=== PATIENT | female | born 2000 | race African-American/Black ===

== ENCOUNTER 2021-08-01 19:27 | Inpatient (IN) | payer BC ==
[~2021-08-01] VITALS: Ht 165.1 cm; Wt 65.3 kg
--- NOTE | 2021-08-01 20:03 | NUR ---
C/O LOWER ABD PAIN & LOW BACK PAIN. PT JUST FINISHED TAKING ABX FOR UTI. PT AAOX4, VSS. RR EVEN & UNLABORED. DENIES CP, SOB, DIZZINESS, N/V AT THIS TIME. AWAITING EVAL BY LASHONDA.
--- NOTE | 2021-08-01 20:10 | NUR ---
DR. HALE AT FOR [facility].
[2021-08-01 21:01] LABS: BASOPHILS # (AUTO) 0.1 K/uL (0.0-0.2); BASOPHILS % (AUTO) 0.3 % (0.0-2.0); EOSINOPHILS % (AUTO) 0.1 % (0.0-6.0); HEMATOCRIT 37 % (33-45); HEMOGLOBIN 12.5 g/dL (11.5-14.8); LYMPHOCYTES # (AUTO) 1.6 K/uL (0.8-4.8); LYMPHOCYTES % (AUTO) 8.1 % (20.0-44.0); MEAN CORPUSCULAR HGB CONC 34 g/dl (31.0-36.0); MEAN CORPUSCULAR VOLUME 90 fL (82-100); MONOCYTES # (AUTO) 1.4 K/uL (0.1-1.30); NEUTROPHILS % (AUTO) 84.5 % (43.0-81.0); PLATELET COUNT (AUTO) 237 K/uL (150-450); RED BLOOD CELL COUNT(AUTO) 4.13 MIL/uL (4.0-5.2); WHITE BLOOD COUNT (AUTO) 20.1 K/uL (4.3-11.0)
[2021-08-01 21:08] LABS: BILIRUBIN,URINE NEGATIVE (NEGATIVE); COLOR,URINE YELLOW (YELLOW); LEUKOCYTE ESTERASE ,URINE NEGATIVE (NEGATIVE); NITRITE, URINE NEGATIVE (NEGATIVE); PROTEIN,URINE NEGATIVE (NEGATIVE); UGLUCOSE NEGATIVE (NEGATIVE)
[2021-08-01 21:27] LABS: BACTERIA,URINE Rare /HPF (None Seen); RBC,URINE 0-2 /HPF (0-2); SQUAMOUS EPITHELIAL CELL,UR Few /HPF (None Seen); WBC,URINE 0-2 /HPF (0-3)
[2021-08-01 21:40] LABS: CALCIUM, SERUM 8.5 mg/dL (8.5-10.1); CREATININE 0.9 mg/dL (0.6-1.3); POTASSIUM 3.5 mmol/L (3.5-5.1)
[2021-08-01] MEDS ORDERED: IOHEXOL-300 100 ML VIAL IV ONE (21:47)
[2021-08-01] MEDS ORDERED: IV NS 0.9% 250 ML IV ONE (21:47)
[2021-08-01 21:53] LABS: BILIRUBIN,DIRECT 0.2 mg/dL (0.0-0.2)
--- NOTE | 2021-08-01 22:05 | NUR ---
PT TAKEN TO CT
[2021-08-01] MEDS ORDERED: ACETAMINOPHEN 325 MG TABLET PO PRN (23:30)
[2021-08-01] MEDS ORDERED: MAGNESIUM HYDROXIDE 30 ML UDC PO PRN (23:30)
[2021-08-01] MEDS ORDERED: MAG HYDROX/AL HYDROX/SIMETH 30 ML UDC PO PRN (23:30)
[2021-08-01] MEDS ORDERED: Z GUARD REMEDY 2 OZ OINT TP PRN (23:30)
[2021-08-01] MEDS ORDERED: ONDANSETRON HCL/PF 4 MG/2 ML VIAL IVP PRN (23:30)
[2021-08-01] MEDS ORDERED: HYDROCODONE/APAP 10/325MG TABLET PO PRN (23:30)
[2021-08-01] MEDS ORDERED: ZOLPIDEM TARTRATE 5 MG TABLET PO PRN (23:30)
[2021-08-01] MEDS ORDERED: MORPHINE SULFATE INJ 2 MG/ML DISP.SYRIN IV PRN (23:30)
--- NOTE | 2021-08-02 03:20 | NUR ---
PATIENT'S BROTHER KATLYN CONTACT INFO: [phone]
[2021-08-02 05:13] LABS: BASOPHILS # (AUTO) 0.1 K/uL (0.0-0.2); BASOPHILS % (AUTO) 0.5 % (0.0-2.0); EOSINOPHILS % (AUTO) 0.6 % (0.0-6.0); HEMATOCRIT 36 % (33-45); LYMPHOCYTES # (AUTO) 2.6 K/uL (0.8-4.8); LYMPHOCYTES % (AUTO) 14.8 % (20.0-44.0); MEAN CORPUSCULAR HGB CONC 33 g/dl (31.0-36.0); MEAN CORPUSCULAR VOLUME 90 fL (82-100); MONOCYTES # (AUTO) 1.2 K/uL (0.1-1.30); NEUTROPHILS # (AUTO) 13.4 K/uL (1.8-8.9); NEUTROPHILS % (AUTO) 77.1 % (43.0-81.0); PLATELET COUNT (AUTO) 238 K/uL (150-450); RED BLOOD CELL COUNT(AUTO) 3.99 MIL/uL (4.0-5.2); WHITE BLOOD COUNT (AUTO) 17.4 K/uL (4.3-11.0)
[2021-08-02 05:38] LABS: CALCIUM, SERUM 8.6 mg/dL (8.5-10.1); CREATININE 0.9 mg/dL (0.6-1.3); MAGNESIUM 2.3 mg/dL (1.8-2.4); PHOSPHORUS 4.5 mg/dL (2.5-4.9); POTASSIUM 3.8 mmol/L (3.5-5.1)
[2021-08-02] MEDS ORDERED: CEFTRIAXONE 1GM BAG (ER ONLY) 50 ML IV ONE (05:51)
[2021-08-02] MEDS: CEFTRIAXONE 1 G in IV D5W 50 ML IV SCH (05:57)
--- NOTE | 2021-08-02 07:50 | NUR ---
THE PATIENT IS RECEIVED IN [facility] BED#16. AAO X4. IN ROOM AIR AND DENIES SOB. RESPIRATION REGULAR AND UNLABORED. DENIES PAIN. WILL CONTINUE TO MONITOR THE PATIENT.
[2021-08-02] MEDS ORDERED: FLUCONAZOLE (100 MG) 100 MG TABLET ONE (09:03)
[2021-08-02] MEDS: FLUCONAZOLE (100 MG) 100 MG TABLET PO SCH (09:07)
[2021-08-02] MEDS: NYSTATIN (PYXIS) 500,000 UNIT/5 ML ORAL.SUSP PO SCH ×3 (09:08→16:57)
[2021-08-02] MEDS: IV NS 0.9% 1,000 ML IV PRN (09:52)
--- NOTE | 2021-08-02 18:05 | NUR ---
GIANCARLO IS ROCIO [phone]
--- NOTE | 2021-08-02 20:17 | NUR ---
CALLED TO BED 320-1
--- NOTE | 2021-08-02 20:50 | NUR ---
REPORT GIVEN TO JOANNA RN FOR ALEAH
--- NOTE | 2021-08-02 20:55 | NUR ---
PATIENT TRANSFERRED TO [facility] ROOM 320-1 IN A RNEY ACCOMPANIED BY CARL ACEVEDO IN STABLE CONDITION.
[2021-08-02 21:10] VITALS: BP 113/74
--- NOTE | 2021-08-02 21:10 | NUR ---
MS RN ADMITTING NOTE PT TRANSPORTED BY DORINA TO UNIT FROM ED AT THIS TIME, RECEIVED REPORT FROM ARCENIO GUERRERO @[facility], A/OX4. PT ABLE TO COMMUNICATE NEEDS. NO SOB, NO C/O PAIN AT THIS TIME, NO S/S OF ANY APPARENT DISTRESS NOTED, RESPIRATIONS EVEN AND UNLABORED, ACTIVE BOWEL SOUNDS AUSCULTATED THROUGHOUT, ABDOMEN IS NON DISTENDED. SKIN IS INTACT, WARM TO TOUCH, CAPILLARY REFILL <3 SECS, PULSES PRESENT BILATERALLY, GOOD CIRCULATION NOTED. IV ACCESS NOTED IN RIGHT AC G#20, INTACT, PATENT, AND FLUSHING WELL. PT'S BELONGINGS ACCOUNTED FOR, AND KEPT AT PT'S BEDSIDE PER PT REQUEST. ASPIRATION AND SAFETY PRECAUTIONS IN PLACE AND MAINTAINED AT ALL TIMES. BED IN LOWEST, LOCKED POSITION, SIDE RAILS UP X2, TABLE AND CALL LIGHT WITHIN REACH. WILL CONTINUE TO MONITOR.
[2021-08-03] MEDS: IV NS 0.9% 1,000 ML IV PRN (05:39)
[2021-08-03] MEDS ORDERED: CEFTRIAXONE 1 G VIAL ONE (06:16)
[2021-08-03] MEDS: CEFTRIAXONE 1 G in IV D5W 50 ML IV SCH (06:20)
--- NOTE | 2021-08-03 06:30 | NUR ---
RN CLOSING NOTE PT AWAKE IN BED. STABLE THROUGHOUT SHIFT. WILL ENDORSE TO ONCOMING NURSE
--- NOTE | 2021-08-03 07:46 | NUR ---
MS/RN OPENING NOTES RECEIVED PATIENT IN BED, ALERT AND ORIENTED X4, ABLE TO MAKE NEEDS KNOWN. STABLE ON ROOM AIR. AMBULATORY. IV ACCESS ON RIGHT AC #20G IS INTACT AND PATENT WITH A RUNNING NS @75ML/HR. SAFETY PRECAUTIONS IN PLACED: BED LOCKED ON LOWEST POSITION, SIDE RAILS UPX2, CALL LIGHT WITHIN EASY REACH. WILL CONTINUE TO MONITOR PATIENT.
[2021-08-03 08:23] VITALS: BP 117/67
[2021-08-03] MEDS: FLUCONAZOLE (100 MG) 100 MG TABLET PO SCH (08:44)
[2021-08-03] MEDS: NYSTATIN (PYXIS) 500,000 UNIT/5 ML ORAL.SUSP PO SCH (08:45)
[2021-08-03 09:02] LABS: BASOPHILS % (AUTO) 0.4 % (0.0-2.0); EOSINOPHILS % (AUTO) 1.5 % (0.0-6.0); HEMATOCRIT 37 % (33-45); HEMOGLOBIN 12.5 g/dL (11.5-14.8); LYMPHOCYTES # (AUTO) 1.4 K/uL (0.8-4.8); LYMPHOCYTES % (AUTO) 19.8 % (20.0-44.0); MEAN CORPUSCULAR HGB CONC 34 g/dl (31.0-36.0); MEAN CORPUSCULAR VOLUME 91 fL (82-100); MONOCYTES # (AUTO) 0.6 K/uL (0.1-1.30); NEUTROPHILS # (AUTO) 4.9 K/uL (1.8-8.9); NEUTROPHILS % (AUTO) 70.3 % (43.0-81.0); PLATELET COUNT (AUTO) 248 K/uL (150-450); RED BLOOD CELL COUNT(AUTO) 4.07 MIL/uL (4.0-5.2)
[2021-08-03 09:51] LABS: ALBUMIN 3.7 g/dL (3.4-5.0); BILIRUBIN,TOTAL 0.4 mg/dL (0.2-1.0); CALCIUM, SERUM 8.9 mg/dL (8.5-10.1); CREATININE 0.9 mg/dL (0.6-1.3); POTASSIUM 3.8 mmol/L (3.5-5.1); TOTAL PROTEIN, SERUM 8.1 g/dL (6.4-8.2)
[2021-08-03 10:25] VITALS: BP 117/67
--- NOTE | 2021-08-03 11:45 | NUR ---
MS/LOCOMOTIVE REPAIRER DIESEL NOTES PATIENT IS MEDICALLY STABLE AND DR. POLLARD ORDERED TO DISCHARGE HOME. PATIENT IS ALERT AND ORIENTED X4, ABLE TO MAKE NEEDS KNOWN. AMBULATORY STEADY, SKIN IS INTACT. DISCHARGE INSTRUCTIONS GIVEN TO THE PATIENT AND ABLE TO UNDERSTAND TEACHING. ALL BELONGINGS ACCOUNTED FOR. IV ACCESS DISCONTINUED. PATIENT WAS ESCORTED DOWN TO THE LOBBY AND WAS PICKED UP BY THE SISTER VIA PRIVATE CAR.
== END 2021-08-03 11:46 | disposition home or self-care (01) | DRG 758 ==
LOC: ER 19:33 → TRANSITION 08-02 05:03 → MED 08-02 20:20
PROVIDERS: ADMIT Nurse Practitioner Acute Care; ATTEND Internal Medicine
DX: N76.0 Acute vaginitis (principal); N30.00 Acute cystitis without hematuria; B37.0 Candidal stomatitis; E86.0 Dehydration; F17.210 Nicotine dependence, cigarettes, uncomplicated; F19.90 Other psychoactive substance use, unspecified, uncomplicated
CPT/HCPCS: 36415; 76770-TC; 76856-TC; 80048-TC; 80053-TC; 80076-TC; 81001; 83605-TC; 83690-TC; 83735-TC; 84100-TC; 84703-TC; 85025-TC; 87040-TC; 87081-TC; 87086-TC; C9803; G0378; J0696; J2270; J2405; J7030; J7050; J7060; Q9967